=== PATIENT | male | born 1990 | race Caucasian/White ===

== ENCOUNTER 2025-02-10 00:17 | Emergency (ER) | payer OTHER ==
[~2025-02-10] VITALS: Ht 167.6 cm; Wt 108.9 kg
[~2025-02-10 00:17] MED LIST: CEPH500 PO; CYCL10 PO; HYDACE5 PO; IBUP800 PO; KETO10 PO; Naprosyn375 MG PO; Norco 5-325 Ta1 EACH PO; SULTRIDS PO; Ultram50 MG PO
[2025-02-10 00:32] VITALS: BP 148/92
[2025-02-10] MEDS ORDERED: Ketorolac Tromethamine 15mg Vial IV ONE (00:55)
[2025-02-10 01:22] LABS: BASOPHILS ABSOLUTE AUTO 0.05 K/mm3 (0.00-0.23); BASOPHILS PERCENT AUTO 1 % (0-2); EOSINOPHILS ABSOLUTE AUTO 0.17 K/mm3 (0.00-0.68); EOSINOPHILS PERCENT AUTO 2 % (0-6); Hematocrit 44.7 % (37.0-53.0); Hemoglobin 15.3 g/dL (13.5-17.5); IMMATURE GRAN ABSOLUTE AUTO 0.03 K/mm3 (0.00-0.10); IMMATURE GRAN PERCENT AUTO 0 % (0-1); LYMPHOCYTES ABSOLUTE AUTO 2.22 K/mm3 (0.84-5.20); LYMPHOCYTES PERCENT AUTO 21 % (21-46); MONOCYTES ABSOLUTE AUTO 1.04 K/mm3 (0.16-1.47); MONOCYTES PERCENT AUTO 10 % (4-13); Mean Corpuscular HGB Conc 34.2 g/dL (31.5-36.5); Mean Corpuscular Volume 83 fL (80-100); NEUTROPHILS ABSOLUTE AUTO 7.29 K/mm3 (1.96-9.15); NEUTROPHILS PERCENT AUTO 67 % (41-73); NRBC ABSOLUTE 0.00 K/mm3 (0.00-0.02); NRBC Auto 0.0 /100 WBC (0.0-0.2); Platelet Count 255 K/mm3 (150-400); RDW Coefficient Variation 12.3 % (11.7-14.2); RDW Standard Deviation 37.5 fL (35.1-46.3)
[2025-02-10 01:49] LABS: Alanine Aminotransfer (ALT/SGP 31.0 U/L (12-78); Albumin, Blood 4.2 g/dL (3.4-5.0); Albumin/Globulin Ratio 1.2 (0.8-1.8); Anion Gap 5.0 mmol/L (3-11); Aspartate Aminotrans (AST/SGOT 20.0 U/L (12-37); Bilirubin, Total 0.4 mg/dL (0.1-1.0); Blood Urea Nitrogen 14.0 mg/dL (8-24); CO2, Blood 29.0 mmol/L (21-32); Calcium, Blood 9.0 mg/dL (8.5-10.1); Chloride, Blood 105.0 mmol/L (98-108); Creatinine, Blood 0.92 mg/dL (0.60-1.20); Globulin, Blood 3.5 g/dL (2.2-4.0); Glucose, Blood 96.0 mg/dL (70-99); Potassium, Blood 4.0 mmol/L (3.5-5.5); Sodium, Blood 135.0 mmol/L (136-145); Total Protein, Blood 7.7 g/dL (6.4-8.2)
[2025-02-10] MEDS ORDERED: LIDO700A20 TOP (02:04)
[2025-02-10] MEDS ORDERED: Voltaren100 GM TOP (02:04)
[2025-02-10] MEDS ORDERED: Robaxin750 MG PO (02:04)
== END 2025-02-10 02:53 | disposition home or self-care (01) ==
LOC: ER 00:17
PROVIDERS: Student in an Organized Health Care Education/Training Program
DX: R07.89 Other chest pain (principal)
CPT/HCPCS: 71101; 80053; 84484; 85025; 93005; 93010; 96374; 99283-25; A9270; J1885